=== PATIENT | male | born 1995 | race Caucasian/White ===

== ENCOUNTER 2016-02-27 17:42 | Emergency (ER) | payer BC ==
[2016-02-27 18:25] VITALS: BP 128/56
--- NOTE | 2016-02-27 19:17 | UC ---
General HPI - HPI Summary HPI Summary: patient chews tobacco, has developed white spots on the right side of his oral mucosa. He is just ending a cold as well. does have some soreness on the right side of his throat when he swallows. - History of Current Complaint Chief Complaint: UCGeneralIllness Stated Complaint: SPOTS ON TONGUE Hx Obtained From: Patient Onset/Duration: Sudden Onset, Lasting Days Timing: Constant Onset Severity: Mild Current Severity: Mild Pain Intensity: 2 - Allergy/Home Medications Allergies/Adverse Reactions: Allergies Allergy/AdvReac Type Severity Reaction Status Date / Time No Known Allergies Allergy Verified 02/27/16 18:25 PMH/Surg Hx/FS Hx/Imm Hx Previously Healthy: Yes - Surgical History Surgical History: None - Family History Known Family History: Negative: Hypertension, Diabetes - Social History Alcohol Use: Occasionally Substance Use Type: None Smoking Status (MU): Never Smoked Tobacco Type: Smokeless Tobacco Amount Used/How Often: A CAN A DAY Length of Time of Smoking/Using Tobacco: 3 Years Have You Smoked in the Last Year: No - Immunization History Most Recent Influenza Vaccination: 12/29/15 Most Recent Tetanus Shot: September 2015 Vaccination Up to Date: Yes Review of Systems Constitutional: Negative Skin: Negative Eyes: Negative ENT: Negative, Other - white spots in moth Respiratory: Negative Cardiovascular: Negative Gastrointestinal: Negative Genitourinary: Negative Motor: Negative Neurovascular: Negative Musculoskeletal: Negative Neurological: Negative Psychological: Negative All Other Systems Reviewed And Are Negative: Yes Physical Exam Triage Information Reviewed: Yes Appearance: Well-Appearing, Well-Nourished, Ill-Appearing, Pain Distress Vital Signs: Initial Vital Signs Temp 98.8 F 02/27/16 18:18 Pulse 70 02/27/16 18:18 Resp 16 02/27/16 18:18 BP 128/56 02/27/16 18:18 Pulse Ox 100 02/27/16 18:18 Vital Signs Reviewed: Yes Eye Exam: Normal Eyes: Positive: Conjunctiva Clear ENT: Positive: Hearing grossly normal, Pharyngeal erythema, TMs normal, Other: - white spots on oral mucosa, Dental Exam: Normal Neck exam: Normal Neck: Positive: Supple, Nontender, No Lymphadenopathy Respiratory Exam: Normal Respiratory: Positive: Chest non-tender, Lungs clear, Normal breath sounds Cardiovascular Exam: Normal Cardiovascular: Positive: RRR, No Murmur, Pulses Normal Abdominal Exam: Normal Abdomen Description: Positive: Nontender, No Organomegaly, Soft Bowel Sounds: Positive: Present Musculoskeletal Exam: Normal Musculoskeletal: Positive: Strength Intact, ROM Intact, No Edema Neurological Exam: Normal Neurological: Positive: Alert, Muscle Tone Normal Psychological Exam: Normal Skin Exam: Normal Course/Dx - Course Course Of Treatment: history obtained, exam performed, medication reviewed, educated on tabacco cessation. medication prescribed. - Differential Dx - Multi-Symptom Provider Diagnoses: tobacco abuse. white spots on oral mucosa Discharge - Discharge Plan Condition: Stable Disposition: HOME Patient Education Materials: How to Quit Using Smokeless Tobacco (ED) Additional Instructions: I have prescribed a short course of prednisone to reduce the inflammation from your throat from your cold. If the white spots persist or become more numerous I recommend follow up with your ENT Dr miller. I encourage you to stop using your chew, especially with your family history of mouth cancer.
== END 2016-02-27 19:25 | disposition home or self-care (01) ==
LOC: UCCORT 17:42
DX: K13.29 Other disturbances of oral epithelium, including tongue (principal); F17.220 Nicotine dependence, chewing tobacco, uncomplicated
CPT/HCPCS: 99212; G0463

== ENCOUNTER 2017-07-07 11:28 | Emergency (ER) | payer BC ==
[2017-07-07 12:45] VITALS: BP 126/70
--- NOTE | 2017-07-07 13:27 | UC ---
General HPI - HPI Summary HPI Summary: PT IS C/O "A SINUS INFECTION". STATES ILL FOR OVER A WEEK WITH NASAL CONGESTION. THE PAST COUPLE OF DAYS DEVELOPED SINUS PAIN AND THICK GREEN DRAINAGE. FEELS LIKE HAS A FEVER. SOME RELIEF WITH NASAL FLUSHES AND MUCINEX D- "MAKES IT BEARABLE" - History of Current Complaint Hx Obtained From: Patient Onset/Duration: Gradual Onset Timing: Constant Pain Intensity: 0 Associated Signs & Symptoms: Positive: Fever, Headache <Katheryn Roberto - Last Filed: 07/07/17 13:28> <Ida Wood - Last Filed: 07/07/17 20:33> - History of Current Complaint Chief Complaint: UCGeneralIllness Stated Complaint: SINUSES Time Seen by Provider: 07/07/17 13:10 - Allergy/Home Medications Allergies/Adverse Reactions: Allergies Allergy/AdvReac Type Severity Reaction Status Date / Time No Known Allergies Allergy Verified 07/07/17 12:42 Home Medications: Home Medications Guaifenesin/Pseudoephedrne HCl [Mucinex D] 1 tab PO ONCE 07/07/17 [History Confirmed 07/07/17] PMH/Surg Hx/FS Hx/Imm Hx Previously Healthy: Yes - Surgical History Surgical History: None - Family History Known Family History: Negative: Hypertension, Diabetes - Social History Occupation: Student Lives: With Family Alcohol Use: Rare Substance Use Type: None Smoking Status (MU): Current Some Day Smoker Type: Smokeless Tobacco Amount Used/How Often: A CAN A DAY Length of Time of Smoking/Using Tobacco: 3 Years Have You Smoked in the Last Year: No - Immunization History Most Recent Influenza Vaccination: 12/29/15 Most Recent Tetanus Shot: September 2015 Vaccination Up to Date: Yes <Katheryn Roberto - Last Filed: 07/07/17 13:28> Review of Systems Constitutional: Fever Skin: Negative Eyes: Negative ENT: Nasal Discharge, Sinus Congestion, Sinus Pain/Tenderness Respiratory: Negative Cardiovascular: Negative Gastrointestinal: Negative Genitourinary: Negative Motor: Negative Neurovascular: Negative Musculoskeletal: Negative Neurological: Negative Psychological: Negative Is Patient Immunocompromised?: No All Other Systems Reviewed And Are Negative: Yes <Katheryn Roberto - Last Filed: 07/07/17 13:28> Physical Exam Triage Information Reviewed: Yes Appearance: Well-Appearing Vital Signs: Initial Vital Signs Temp 98.1 F 07/07/17 12:41 Pulse 63 07/07/17 12:41 Resp 14 07/07/17 12:41 BP 126/70 07/07/17 12:41 Pulse Ox 100 07/07/17 12:41 Vital Signs Reviewed: Yes Eyes: Positive: Conjunctiva Clear ENT: Positive: Pharynx normal, Nasal congestion, Nasal drainage - THICK YELLOW, TMs normal, Sinus tenderness Neck: Positive: Supple, Nontender, No Lymphadenopathy Respiratory: Positive: Lungs clear, Normal breath sounds Cardiovascular: Positive: RRR, No Murmur Abdomen Description: Positive: Nontender, No Organomegaly, Soft Bowel Sounds: Positive: Present Musculoskeletal: Positive: ROM Intact Neurological: Positive: Alert Psychological: Positive: Age Appropriate Behavior Skin Exam: Normal <Katheryn Roberto - Last Filed: 07/07/17 13:28> Vital Signs: Initial Vital Signs Temp 98.1 F 07/07/17 12:41 Pulse 63 07/07/17 12:41 Resp 14 07/07/17 12:41 BP 126/70 07/07/17 12:41 Pulse Ox 100 07/07/17 12:41 <Ida Wood - Last Filed: 07/07/17 20:33> Course/Dx - Course Course Of Treatment: PT ADVISED TO CONSIDER FLONASE OTC TX. - Differential Dx - Multi-Symptom Provider Diagnoses: SINUSITIS <Katheryn Roberto - Last Filed: 07/07/17 13:28> Discharge - Sign-Out/Discharge Documenting (check all that apply): Discharge/Admit/Transfer - Billing Disposition and Condition Condition: STABLE Disposition: HOME <Katheryn Roberto - Last Filed: 07/07/17 13:28> - Billing Disposition and Condition Condition: STABLE Disposition: HOME <Ida Wood - Last Filed: 07/07/17 20:33> - Discharge Plan Condition: Stable Disposition: HOME Prescriptions: Amoxicillin/Clavulanate TAB* [Augmentin TAB 875*] 875 mg PO BID #20 tab Patient Education Materials: Sinusitis (ED) Referrals: Kris Vang DO [Primary Care Provider] - 7 Days Attestation Statement User Type: Provider - I was available for consult. This patient was seen by the LACIE. The patient was not presented to, seen by, or examined by me. -Maren <Ida Wood - Last Filed: 07/07/17 20:33>
== END 2017-07-07 13:32 | disposition home or self-care (01) ==
LOC: UCCORT 11:28
DX: J32.9 Chronic sinusitis, unspecified (principal); F17.220 Nicotine dependence, chewing tobacco, uncomplicated
CPT/HCPCS: 99212; G0463

== ENCOUNTER 2018-07-06 12:24 | Emergency (ER) | payer BC ==
[2018-07-06 13:36] VITALS: BP 120/84
--- NOTE | 2018-07-06 13:47 | UC ---
General HPI - HPI Summary HPI Summary: per triage, Cough and congestion for 3 weeks. Started as allergies-taking mucinex and benadry. Started to feel better, stopped taking the meds and it all came back hard. Feels like it is starting to get in the chest. Cough is phlegmy. Chest congestion really bad when he wakes up. Ear ache for past 2-3 days. pt denies fever, sob and hx asthma. - History of Current Complaint Chief Complaint: UCGeneralIllness Stated Complaint: COUGH,CONGESTION Time Seen by Provider: 07/06/18 13:41 Hx Obtained From: Patient Onset/Duration: Gradual Onset Timing: Constant Pain Intensity: 0 Associated Signs & Symptoms: Positive: Cough. Negative: Chest Pain, SOB - Allergy/Home Medications Allergies/Adverse Reactions: Allergies Allergy/AdvReac Type Severity Reaction Status Date / Time No Known Allergies Allergy Verified 07/06/18 13:35 PMH/Surg Hx/FS Hx/Imm Hx Previously Healthy: Yes - Surgical History Surgical History: Yes Surgery Procedure, Year, and Place: wisdom teeth removed - Family History Known Family History: Negative: Hypertension, Diabetes - Social History Occupation: Student - just graduated Alcohol Use: Rare Substance Use Type: None Smoking Status (MU): Never Smoked Tobacco Type: Smokeless Tobacco Amount Used/How Often: A CAN A DAY Length of Time of Smoking/Using Tobacco: 3 Years Have You Smoked in the Last Year: No - Immunization History Most Recent Influenza Vaccination: 12/29/15 Most Recent Tetanus Shot: September 2015 Vaccination Up to Date: Yes Review of Systems All Other Systems Reviewed And Are Negative: Yes ENT: Positive: Ear Ache Respiratory: Positive: Cough Physical Exam Triage Information Reviewed: Yes Appearance: Well-Appearing Vital Signs: Initial Vital Signs Temp 98.1 F 07/06/18 13:29 Pulse 63 07/06/18 13:29 Resp 18 07/06/18 13:29 BP 120/84 07/06/18 13:29 Pulse Ox 100 07/06/18 13:29 Vital Signs Reviewed: Yes Eyes: Positive: Conjunctiva Clear ENT: Positive: Pharynx normal, TMs normal. Negative: Nasal congestion Neck: Positive: Supple, Nontender, No Lymphadenopathy Respiratory: Positive: Lungs clear, No respiratory distress, Decreased breath sounds. Negative: Crackles, Rhonchi, Wheezing Cardiovascular: Positive: RRR, No Murmur Abdomen Description: Positive: Nontender, No Organomegaly, Soft Bowel Sounds: Positive: Present Musculoskeletal: Positive: ROM Intact Neurological: Positive: Alert Psychological: Positive: Age Appropriate Behavior Skin Exam: Normal Course/Dx - Differential Dx - Multi-Symptom Differential Diagnoses: Other - no concern for pneumonia or OM/OE. - Diagnoses Provider Diagnosis: Bronchitis Discharge - Sign-Out/Discharge Documenting (check all that apply): Patient Departure All imaging exams completed and their final reports reviewed: No Studies - Discharge Plan Condition: Stable Disposition: HOME Prescriptions: Albuterol HFA INHALER* [Ventolin HFA Inhaler*] 2 puff INH Q6H #1 mdi predniSONE [Prednisone 20 MG TAB] 40 mg PO DAILY 3 Days #6 tablet Patient Education Materials: Acute Bronchitis (ED) Referrals: Kris Vang DO [Primary Care Provider] - 5 Days - Billing Disposition and Condition Condition: STABLE Disposition: Home - Attestation Statements Provider Attestation: I was available for consult. This patient was seen by the LACIE. The patient was not presented to , seen by or examined by ms -Maximo Haney MD
== END 2018-07-06 13:54 | disposition home or self-care (01) ==
LOC: UCCORT 12:24
DX: J40 Bronchitis, not specified as acute or chronic (principal); R05 Cough
CPT/HCPCS: 99212; G0463